=== PATIENT | male | born 1970 | race Hispanic/Latino ===

== ENCOUNTER 2024-04-02 01:08 | Emergency (ER) | payer OTHER ==
[~2024-04-02] VITALS: Ht 175.3 cm; Wt 87.4 kg
[~2024-04-02 01:08] MED LIST: CEPHALEXIN500 MG PO; CLINDAMYCIN HC300 MG PO; GABAPENTIN300 MG PO; HYDROCHLOROTH12.5 M1 PO; NORCO 5-325 TA1 EACH PO; PERCOCET 5-3251 EACH PO; TRAMADOL HCL50 MG PO; VALIUM5 MG PO
--- OUTSIDE RECORDS SUMMARY | 2024-04-02 01:10 | XMS ---
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/[place]: Federally Qualified Health Current [facility] ([facility]) [facility] PHONE: [phone] Care Guidelines exist for the following facilities: [facility] ( 12/06/2016 ) Tony VISIT COUNT (12 MO.) 3 [facility] ([place] Roche) 1 LUPE Rodriguez Julio TOTAL 4 NOTE: Visits indicate total known visits. ED/UCC VISIT TRACKING (12 MO.) 04/02/2024 01:10 LUPE Car TYPE: Emergency COMPLAINT: - LACERATION BEHIND R KNEE 10/08/2023 00:45 [facility] Melchor CEJA ([place]) TYPE: Emergency DIAGNOSES: - Generalized abdominal pain - Nausea - anxiety, n/v - Dizziness - Nausea 06/24/2023 12:55 [facility] Melchor CEJA ([place]) TYPE: Emergency DIAGNOSES: - Other injury of unspecified body region, initial encounter - groin pain - Post-op Problem 05/27/2023 14:53 [facility] CEJA ([place]) TYPE: Emergency DIAGNOSES: - Unilateral inguinal hernia, without obstruction or gangrene, not specified as recurrent - Unspecified abdominal pain - Hernia - hernia pain INPATIENT VISIT TRACKING (12 MO.) No inpatient visits to display in this time frame [email or web address]
[2024-04-02] MEDS ORDERED: HYDROCHLOROTHIA25 MG PO (01:26)
[2024-04-02] MEDS ORDERED: DIPHTH,PERTUSS(ACELL),TET VAC 0.5 ML SYRINGE IM ONE (02:00)
--- NOTE | 2024-04-02 02:00 | NUR ---
4cm x2cm ocal wound, stable eschar, viable edges, 0.1cm mcerated margin. area cleaned with soap, water, wound cleanser. scant serous drainage at edges. iodosorb placed in wound. covered with a foam dressing. pt tolerated well. photos in chart. wound care education provided. pt verbalizes understanding of education.
[2024-04-02] MEDS ORDERED: CEPHALEXIN500 M1 PO (02:13)
[2024-04-02] MEDS ORDERED: CEPHALEXIN MONOHYDRATE 500 MG HOME.PACK PO ONE (02:15)
[2024-04-02 03:30] VITALS: BP 176/94
== END 2024-04-02 03:33 | disposition home or self-care (01) ==
LOC: ED 01:08
DX: L03.115 Cellulitis of right lower limb (principal); I10 Essential (primary) hypertension; Z79.899 Other long term (current) drug therapy
CPT/HCPCS: 90471; 90715; 99282-25; A9270